=== PATIENT | female | born 1965 | race Caucasian/White ===

== ENCOUNTER 2024-09-11 21:39 | Emergency (ER) | payer OTHER, SELFPAY ==
[2024-09-11 21:44] VITALS: BP 201/103
[2024-09-11] MEDS: ZOFRAN 4 MG IV (23:02)
[2024-09-11] MEDS: DILAUDID 1 MG IV (23:03)
[2024-09-11 23:22] VITALS: BMI 44.7
[2024-09-11 23:25] VITALS: BP 170/76
--- NOTE | 2024-09-11 23:48 | ED.MUSCINJ ---
HPI-Injury
<Nancy Corral NP - Last Filed: 09/13/24 17:43>
General
Chief Complaint: Fall
Source: patient
Exam Limitations: none
Time Seen by Provider: 09/11/24 22:28
Nursing documentation reviewed up to this point in time: agreed with
History of Present Illness-Injury
Is this injury a work related problem?: No
Is pt an associate of [facility]/[place]?: No
Initial Injury comments:
Trip and fall at [facility]. Denies hitting her head. COmplains of pain to her right shoulder. Injury occurred just [employer]
Past History
<Nancy Corral NP - Last Filed: 09/13/24 17:43>
Past History
ED Past Medical History: None
ED Past Surgical History: None
Review of Systems
<Nancy Corral NP - Last Filed: 09/13/24 17:43>
Review of Systems
Allergies reviewed?: Yes
All Other Systems: ROS reviewed and negative except as documented in HPI and ROS
Constitutional: Reports no symptoms
EENT: Reports no symptoms
Respiratory: Reports no symptoms
Cardiac: Reports no symptoms
ABD/GI: Reports no symptoms
Musculoskeletal: Reports joint pain (Pain to right shoulder)
Skin: Reports no symptoms
Neurological: Reports no symptoms
Psychiatric: Reports no symptoms
Musculoskeletal Injury Exam
<Nancy Corral NP - Last Filed: 09/13/24 17:43>
Musculoskeletal Injury Exam
Right Shoulder:
Pain with Movement?: Moderate
Tender to palpation?: Moderate
Soft tissue swelling?: None
External deformity and angulation?: None
Joint effusion?: None
Contusion?: Moderate
Hematoma-local bleeding into tissue?: None
Strain- Sprain- Tear (Connective tissue injury)?: Moderate
Crepitus with movement?: No
Joint instability?: No
Range of motion: Limited
Distal skin color and temperature: normal-warm & good color
Capillary Refill: normal
Normal distal neurovascular exam?: Yes
Peripheral Pulses: radial (right): 3+
Phy Exam
<Nancy Corral TACK CUTTER - Last Filed: 09/13/24 17:43>
General Physical Exam
General Presentation: well appearing and no apparent distress
General age: appears stated age
General Skin: warm and dry
General Habitus: normal
General Mental: alert
Cardiovascular Exam
Cardiovascular Exam: regular rate/rhythm and no edema
Musculoskeletal Exam
Musculoskeletal Exam: neuro vasc intact
Skin Exam
Skin Exam: normal color, warm/dry and no rash
Psychiatric Exam
Psychiatric Exam: normal mood/affect
Injury Course
<Nancy Corral TACK CUTTER - Last Filed: 09/13/24 17:43>
Orders/Labs/Results
Orders:
Orders
09/11/24 21:45
CR Shoulder, Trauma - Right Urgent
Comment:
Reason For Exam: fall, injury
09/11/24 22:37
HYDROmorphone [Dilaudid] 1 mg IV NOW STA
Ondansetron Injectable [Zofran] 4 mg IV NOW STA
09/11/24 23:36
Propofol [Diprivan] 20 ml .ROUTE .STK-MED
09/12/24 00:00
CR Shoulder - Right 1 View Urgent
Reason For Exam: s/p reduction
<Madison Meehan DO - Last Filed: 09/12/24 00:22>
Orders/Labs/Results
Orders:
Orders
09/11/24 21:45
CR Shoulder, Trauma - Right Urgent
Comment:
Reason For Exam: fall, injury
09/11/24 22:37
HYDROmorphone [Dilaudid] 1 mg IV NOW STA
Ondansetron Injectable [Zofran] 4 mg IV NOW STA
09/11/24 23:36
Propofol [Diprivan] 20 ml .ROUTE .STK-MED
09/12/24 00:00
CR Shoulder - Right 1 View Urgent
Reason For Exam: s/p reduction
Procedures
<Nancy Corral NP - Last Filed: 09/13/24 17:43>
Moderate Sedation
ASA Risk Score: Class I
Chart and allergies reviewed: Yes
Consent for anesthesia obtained: Yes
Time out completed (validating right patient & procedure): Yes
Moderate Sedation Start Time(when first medication is given): 23:53
History of difficult intubation: No
Airway free of obstruction: Yes
Patient has a gag reflex: Yes
Patient is able to open mouth: Yes
Patient has no dentures: Yes
Patient has no loose teeth: Yes
Medication administered by Provider during Moderate Sedation: IV Propofol (mg) (130)
Total dose administered: 130
Time drug administered: 23:54
Moderate Sedation Procedure End Time: 00:04
Joint/Fracture Reduction
Right Shoulder:
Indication for procedure:: dislocation
Procedure completed by: Dr. Meehan/Nancy CONWAY
Consent form signed: Yes
Anesthesia/sedation: Moderate sedation
Injury was: closed
Further treatement: needs re-check only
Post reduction exam: stable
Capillary Refill: normal
Normal distal neurovascular exam?: Yes
Peripheral Pulses: radial (right): 3+
<Nancy Corral NP - Last Filed: 09/13/24 17:43>
*Radiology
Radiology exam reviewed: radiology read reviewed
*Pulse Oximetry
Patient hypoxic: no
*Critical Care Note
Total Time (30-74mins, 75-104mins- exclusive of procedures): Not Applicable
ED Attending Note
<Nancy Corral NP - Last Filed: 09/13/24 17:43>
-
Portions of this chart may have been created with voice recognition software.� Occasional wrong word or��sound alike� substitutions may have occurred due to the inherent limitations of voice recognition software.
<Madison Meehan DO - Last Filed: 09/12/24 00:22>
ED Attending Note
Patient seen and examined by attending physician: Yes
I performed a history and physical exam of patient and discussed management with resident, I reviewed resident's note and agree with documented findings and plan of care.: Yes
ED Attending Note:
59-year-old woman with no significant past medical history presents after mechanical fall sustaining anterior dislocation of right shoulder. No history of similar episodes in the past.
She takes no medicines on a daily basis.
No history of difficulties with anesthesia.
Last oral intake at 5 PM.
59-year-old obese woman appears her stated age. Bright and alert, easily communicative and in no acute distress.
No loose teeth. Posterior pharynx is clear.
Respirations are easy nonlabored.
Right shoulder with squared off deformity, humeral head palpable anterior inferior to shoulder joint. Limited range of motion related to pain. Neurovascularly intact peripherally.
X-ray shows anterior dislocation of humeral head. No evidence of fracture.
Will plan for moderate sedation with propofol to assist with closed reduction of right shoulder dislocation.
00:15
Successful closed reduction of right anterior shoulder dislocation.
Moderate sedation via propofol.
Patient tolerated procedure well without complications.
Postreduction film reveals successful reduction of shoulder dislocation. No fracture.
Will be placed in a shoulder immobilizer.
As patient resides in [place], recommend prompt follow-up with PCP for assistance with referral to a local orthopedist for follow-up.
Discharge Plan
Departure
Patient Disposition: Home (Routine Discharge)
Patient with high blood pressure during this ER visit?: No
Condition: Good
Discharge Problem:
Dislocation of shoulder
Instructions: Moderate and Deep Sedation in Adults, Shoulder Dislocation (DC), Preventing falls in adults, How to Use a Shoulder Sling, Ibuprofen
Activity Restrictions/Additional Instructions:
Follow up with you orthopedic provider this week.
Interventions
Interventions:
*Risk Screen - Suicide Last Done: 09/11/24 21:41
*General Assessment Last Done: 09/11/24 21:41
*Neglect/Abuse Screening Last Done: 09/11/24 21:41
ED- Fall Risk Assessment Last Done: 09/11/24 22:16
*ED COVID-19 Vaccine History Last Done: 09/11/24 22:15
*Nursing Disposition Last Done: 09/12/24 01:09
ED-Musculoskeletal Assessment Last Done: 09/11/24 22:15
ED- Neurological Assessment Last Done: 09/11/24 22:15
ED-Skin Assessment Last Done: 09/11/24 22:15
Discharge Date and Time
Discharge Date/Time: 09/12/24 01:10
Print Language: NIUEAN
[2024-09-11 23:54] VITALS: BP 184/94
[2024-09-11 23:57] VITALS: BP 162/75
[2024-09-12] VITALS: BP 153/78
[2024-09-12 00:04] VITALS: BP 163/86
[2024-09-12 00:19] VITALS: BP 158/75
[2024-09-12 00:33] VITALS: BP 163/81
[2024-09-12 00:34] VITALS: BP 163/81
== END 2024-09-12 01:10 | disposition home or self-care (01) ==
LOC: EMR 21:39
PROVIDERS: EMERGENCY PHYSICIAN Emergency Medicine
DX: S43.014A Anterior dislocation of right humerus, initial encounter (principal); W01.0XXA Fall on same level from slipping, tripping and stumbling without subsequent striking against object, initial encounter
CPT/HCPCS: 23650; 99152; 96374; 96375; 99285; 73020; 73030